=== PATIENT | female | born 1990 | race Caucasian/White ===

== ENCOUNTER 2017-01-05 13:59 | Emergency (ER) | payer MEDICAID ==
[2017-01-05 14:12] VITALS: BP 114/66
[2017-01-05] MEDS ORDERED: LIDOCAINE HCL 20 ML UDC MM ONE (14:21)
--- NOTE | 2017-01-05 14:26 | ERNOTE ---
ENT HPI Date of Service: 01/05/17 Presenting Symptoms: dental pain Time Seen by Provider: 01/05/17 14:14 Source: patient Exam Limitations: no limitations - Immun/Allergies/Home Medications Immunizations: IMMUNIZATION HX Immunizations Up to Date Yes Allergies/Adverse Reactions: Allergies Allergy/AdvReac Type Severity Reaction Status Date / Time codeine Allergy Vomiting Verified 01/05/17 14:13 Home Medications: HOME MEDICATIONS Clindamycin HCl [Cleocin HCl] 300 mg PO Q6H #40 capsule 01/05/17 [Last Taken Unknown] Pnv Cmb#21/Iron/Folic Acid [ Complete Caplet] 1 each PO DAILY 01/05/17 [ Last Taken Unknown] diphenhydrAMINE HCL [Benadryl] 25 mg PO Q6H PRN 01/05/17 [Last Taken Unknown] - History of Present Illness Narrative: Pt. comes in with c/o L mandible pain afor three days. Pt. denies any fever, NVD, headache, dizziness, SOB, or CP. Pt. does state that she is having difficulty eating or sleeping due to the pain. Pt. has an appointment with a dentist in a week and has been taking Tylenol as suggested by her TICKER MAINTAINER as she is 24 weeks . Review of Systems - Review of Systems Constitutional: Present: no symptoms reported. Absent: recent illness, fever, chills, fatigue, malaise EYE: Present: no symptoms reported ENT: Present: other - L mandible pain Respiratory: Present: no symptoms reported. Absent: shortness of breath, cough , wheezing Cardiology: Present: no symptoms reported. Absent: chest pain, palpitations, edema Gastrointestinal/Abdominal: Present: no symptoms reported. Absent: nausea, vomiting, diarrhea Genitourinary: Present: no symptoms reported Musculoskeletal: Present: no symptoms reported. Absent: back pain, joint pain Skin: Present: no symptoms reported Neurological: Present: no symptoms reported. Absent: headache, dizziness/light- headedness, numbness, tingling All Other Systems: All systems neg except as marked - Patient's Past Medical History Patient History - Medical: No pertinent hx Patient History - Cardiac/Respiratory: No pertinent hx Patient History - Cancer: No Hx of Cancer Patient History - Surgical Procedures: D & C, Other - Immunizations Immunizations Up to Date: Yes Physical Exam - Physical Exam General Appearance: Present: wd/wn, alert, no apparent distress Eye Exam: Normal inspection: bilateral, PERRL: bilateral, EOMI: bilateral Ears, Nose, Throat: Present: normal pharynx, other - Mandible tenderness and small fluid pocket below two broken teeth below gumline Neck: Present: normal inspection, nontender. Absent: lymphadenopathy (R), lymphadenopathy (L) Respiratory: Present: no respiratory distress, normal breath sounds, no accessory muscle use, chest nontender, lungs clear Cardiovascular/Chest: Present: regular rate, rhythm, no murmur, normal peripheral pulses Gastrointestinal/Abdominal: Present: normal bowel sounds, nontender, nondistended, soft, no organomegaly Back Exam: Present: normal inspection, normal range of motion, no CVA tenderness , no vertebral tenderness Extremity Exam: Present: normal inspection, non-tender, normal range of motion, no edema Neurological Exam: Present: alert, oriented, normal mood/affect, no motor/ sensory deficits Skin Exam: Present: normal color, warm/dry. Absent: pallor, skin rash ED Progress - Vital Signs Patient's Vital Signs:: I have reviewed the patient's vital signs. Vital Signs: Vital Signs 01/05/17 14:03 Temperature 37 C Pulse Rate 100 Respiratory 12 Rate Blood Pressure 114/66 O2 Sat by Pulse 100 Oximetry - Progress/Reassessment Chief Complaint: Dental Problem Progress:: Improved Progress Note-Subjective: 01/05/17 14:45 with lidocaine will send rest home with pt to apply q4hr prn Departure Clinical Impression: Dental abscess - Departure Disposition: Home self-care Condition: Good Instructions: Dental Abscess, [id number] Additional Instructions: May take tylenol up to 1000mg every six hours as needed. Please follow up with dentist next week as planned Prescriptions: Clindamycin HCl [Cleocin HCl] 300 mg PO Q6H #40 capsule
--- OUTSIDE RECORDS SUMMARY | 2017-01-05 14:37 | XMS REPORT | Continuity of Care Document ---
:1990 Author Organization [facility] [place] [address] Care Team Providers Name Role Phone Unavailable Primary Care Provider Unavailable Source Comments This disclosure is being made pursuant to the [employer] program and maynot contain all information available regarding this patient.[facility] Active Allergies and Adverse Reactions Not on File Current Medications Be aware that medications may not be up to date as of this document. Alwaysverify current medications with the patient. Not on file Active Problems Not on file Social History Tobacco Use Types Packs/Day Years Used Date Never Assessed Plan of Care Health Maintenance Due Date Last Done Comments HPV Vaccine (9-26YO) (1 of 3 - Female/Unknown 3 Dose 02/25/2003 Series) Chlamydia Screening 2008 Retired-Tetanus Vaccine Adult 02/25/2011 Pap Smear 02/25/2013 Retired-INFLUENZA VACCINE 05/06/2015 Results from Last 3 Months Not on file
--- OUTSIDE RECORDS SUMMARY | 2017-01-05 14:38 | XMS REPORT | Continuity of Care Document ---
:1990 Author Organization [facility] ([facility]) Address [place] [address] Phone [phone] Care Team Providers Name Role Phone Unavailable Primary Care Provider Unavailable Source Comments This disclosure is being made pursuant to the Care Everywhere program, applicable federal and state laws, and may not contain all informaitonavailable regarding this patient.[facility] ([facility]) Active Allergies and Adverse Reactions Not on File Current Medications Not on file Active Problems Not on file Social History Tobacco Use Types Packs/Day Years Used Date Never Assessed Plan of Care Health Maintenance Due Date Last Done Comments Hepatitis B Vaccine (1 of 3 - Primary Series) 1992 HPV Vaccine (1 of 3 - Female/Unknown 3 Dose Series) 02/25/2003 Tdap Vaccine 02/25/2003 Cervical Cancer Screening 02/25/2010 Lipid Disorder Screening 02/25/2010 MMR Vaccine 02/25/2010 Td Vaccine 02/25/2010 Varicella Vaccine (1 of 2 - Adult - No Evidence of 02/25/2010 Immunity) Influenza Vaccine: Seasonal (#1) 04/05/2016 Results from Last 3 Months Not on file
== END 2017-01-05 14:37 | disposition home or self-care (01) ==
LOC: ER 13:59
DX: K04.7 Periapical abscess without sinus (principal); Z72.0 Tobacco use; Z3A.24 24 weeks gestation of pregnancy

== ENCOUNTER 2017-01-31 20:09 | Observation (INO) | payer MEDICAID ==
--- OUTSIDE RECORDS SUMMARY | 2017-01-31 20:14 | XMS REPORT | Continuity of Care Document ---
:1990 Author Organization [facility] [place] [address] Care Team Providers Name Role Phone Unavailable Primary Care Provider Unavailable Source Comments This disclosure is being made pursuant to the [employer] program and maynot contain all information available regarding this patient.[facility] Active Allergies and Adverse Reactions Not on [...]
--- OUTSIDE RECORDS SUMMARY | 2017-01-31 20:14 | XMS REPORT | Continuity of Care Document ---
:1990 Author Organization [facility] ([facility]) Address [place] [address] Phone [phone] Care Team Providers Name Role Phone Unavailable Primary Care Provider Unavailable Source Comments This disclosure is being made pursuant to the Care Everywhere program, applicable federal and state laws, and may not contain all informaitonavailable regarding this patient.[facility] ([facility]) Active Allergies and Adverse Reactions Not on [...]
[2017-01-31] MEDS ORDERED: DEXTROSE 5%-LACTATED RINGERS 1,000 ML IV PRN ×2 (20:34→23:27)
[2017-01-31] MEDS ORDERED: RHO(D) IMMUNE GLOBULIN 300 MCG DISP.SYRIN IM ONE (20:40)
--- NOTE | 2017-01-31 20:54 | PN ---
Subjective - Date and Time Seen Date: 01/31/17 Time: 20:45 Subjective Narrative: 26 yo at 31 1/7 wks presents to L&D s/p fall on abdomen around 1930 this evening. Patient states she tripped and fell directly on abdomen, right knee and elbow. She complains of decreased movement and mild abdominal pain where she hit. She denies vaginal bleeding, LOF, or contractions. Objective Objective Narrative: FHT 150, no decels, NST reactive. Uterine irritability - Review of Systems Generalized/Overall Review: Reports: No Symptoms Reported EENTM: Reports: No Symptoms Reported Respiratory: Reports: No Symptoms Reported Cardiac: Reports: No Symptoms Reported Abdominal: Reports: Abdominal Pain - mild Genitourinary Symptoms: Reports: No Symptoms Reported Musculoskeletal Complaints: Reports: No Symptoms Reported Neurological: Reports: No Symptoms Reported Skin: Reports: No Symptoms Reported Endocrine: Reports: No Symptoms Reported - Vitals Vitals: Last Vital Signs Temp 37.4 C 01/31/17 20:40 Pulse 99 Resp 12 BP 132/75 Pulse Ox 97 - Exam Constitutional: Present: Alert, Oriented x3, Cooperative, No distress ENT Exam: Present: hearing grossly normal Neck: Present: non-tender, full range of motion Respiratory: Present: no respiratory distress, no accessory muscle use Cardiovascular/Chest: Present: normal peripheral pulses, regular rate, rhythm, no edema Abdomen: Present: soft, no rebound tenderness, tender - upper abdomen mildly tender Extremity: Present: normal range of motion, no pedal edema, no calf tenderness Skin Exam: Present: normal color, warm/dry, no cyanosis Neurologic: Present: normal mood/affect, oriented x 3 Appearance: Present: appropriate appearance Eye contact: Present: cooperative, good eye contact, normal speech Thoughts: Present: normal thought pattern Assessment/Plan - Problems/Diagnosis (1) Fall Problem: Acute (2) Fall due to stumbling Problem: Acute (3) Traumatic injury during in third trimester Problem: Acute Narrative: Because patient is Rh- we'll get a blood screen and give 1 amp of RhoGAM. Observe for minimal 4 hours, if no signs of abruption D/C home on light duty and abruption precautions.
[2017-02-01] MEDS ORDERED: ACETAMINOPHEN 325 MG TABLET PO PRN
[2017-02-01] MEDS ORDERED: ACETAMINOPHEN 325 MG TABLET ONE (00:05)
--- OUTSIDE RECORDS SUMMARY | 2017-02-01 00:34 | XMS REPORT | Continuity of Care Document ---
:1990 Author Organization [facility] ([facility]) Address [place] [address] Phone [phone] Care Team Providers Name Role Phone Unavailable Primary Care Provider Unavailable Source Comments This disclosure is being made pursuant to the Care Everywhere program, applicable federal and state laws, and may not contain all informaitonavailable regarding this patient.[facility] ([facility]) Active Allergies and Adverse Reactions Not on [...]
--- OUTSIDE RECORDS SUMMARY | 2017-02-01 00:34 | XMS REPORT | Continuity of Care Document ---
:1990 Author Organization [facility] [place] [address] Care Team Providers Name Role Phone Unavailable Primary Care Provider Unavailable Source Comments This disclosure is being made pursuant to the [employer] program and maynot contain all information available regarding this patient.[facility] Active Allergies and Adverse Reactions Not on [...]
[2017-02-01] MEDS ORDERED: RHO(D) IMMUNE GLOBULIN 300 MCG DISP.SYRIN IM ONE (01:00)
--- NOTE | 2017-02-02 11:24 | DS ---
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 26-year-old 3 para 0 at 31-1/7 weeks admitted for 23 hour observation status post fall on abdomen due to frequent contractions during initial 4 hours of monitoring. Throughout her hospital stay vitals remained stable, her cervix remained unchanged, contractions resolved, and her abdominal pain resolved. Nonstress test was reactive and tracing remained reassuring throughout the entire hospital stay. Procedures Performed: see notes below - continuous monitoring, nonstress test, tocodynamometer Discharge Disposition: Home self care Disposition: Home self-care Condition: Good Discharge Activity: Activity as tolerated Discharge Diet: General/regular food Additional Patient Instructions (free text): Avoid heavy lifting or strenuous activity for 1 week. Follow-up in the office as scheduled within the week. Complete Home Medications List: Complete Home Medication List: Clindamycin HCl [Cleocin HCl] 300 mg PO Q6H #40 capsule 01/05/17 Pnv Cmb#21/Iron/Folic Acid [ Complete Caplet] 1 each PO DAILY 01/05/17 diphenhydrAMINE HCL [Benadryl] 25 mg PO Q6H PRN 01/05/17
== END 2017-02-01 09:25 | disposition home or self-care (01) ==
LOC: OBCLINIC 20:09 → OB 02-01 00:30
PROVIDERS: ADMIT Obstetrics & Gynecology; ATTEND Obstetrics & Gynecology
DX: O71.89 Other specified obstetric trauma (principal); O60.03 Preterm labor without delivery, third trimester; Z3A.31 31 weeks gestation of pregnancy; B18.2 Chronic viral hepatitis C; Z87.891 Personal history of nicotine dependence; O36.0930 Maternal care for other rhesus isoimmunization, third trimester, not applicable or unspecified
CPT/HCPCS: 59025; 85460; 87081; 96372; G0378; J2790

== ENCOUNTER 2017-03-31 00:05 | Inpatient (IN) | payer MEDICAID ==
[~2017-03-31 00:05] MED LIST: LIDOCAINE HCL 50 ML VIAL PERI PRN; ONDANSETRON HCL/PF 2 MG/ML VIAL IV PRN; OXYTOCIN/DEXTROSE 5%-WATER 30 UNITS/500 ML BAG IV ONE
--- OUTSIDE RECORDS SUMMARY | 2017-03-31 00:09 | XMS REPORT | Clinical Summary ---
:1990 Author Organization [facility] [place] [address] Care Team Providers Name Role Phone Unavailable Primary Care Provider Unavailable Source Comments This disclosure is being made pursuant to the [employer] program and maynot contain all information available regarding this patient.[facility] Allergies Not on File Current Medications Be aware that medications may not be up to date as of this document. Alwaysverify current medications with the patient. Not on file Active Problems Not on file Social History Tobacco Use Types Packs/Day Years Used Date Never Assessed Sex Assigned at Date Recorded Not on file Last Filed Vital Signs Not on file Plan of Treatment Health Maintenance Due Date Last Done Comments HPV Vaccine (F:9-26YO,M: 9-22) (1 of 3 - Female/Unknown 02/25/2003 3 Dose Series) CHLAMYDIA SCREENING 2008 Retired-Tetanus Vaccine Adult 02/25/2011 Pap Smear 02/25/2013 Retired-INFLUENZA VACCINE 05/06/2015 Results Not on filefrom Last 3 Months
[2017-03-31] MEDS: DEXTROSE 5%-LACTATED RINGERS 1,000 ML IV PRN ×4 (00:30→17:15)
[2017-03-31 01:10] LABS: Cocaine Ur Negative (NEGATIVE); Urine Barbiturate Negative (NEGATIVE); Urine Benzodiazepines Negative (NEGATIVE); Urine Opiates Negative (NEGATIVE); Urine PCP Negative (NEGATIVE); Urine THC Negative (NEGATIVE)
[2017-03-31] MEDS: MISOPROSTOL 100 MCG TABLET VG PRN ×2 (01:16→03:52)
[2017-03-31] MEDS ORDERED: TERBUTALINE SULFATE 1 MG/ML VIAL SC ONE (06:19)
[2017-03-31] MEDS: RINGER'S SOLUTION,LACTATED 1,000 ML IV ONE ×2 (10:09→16:10)
[2017-03-31] MEDS ORDERED: BUTORPHANOL TARTRATE 2 MG/ML VIAL IV PRN (12:31)
[2017-03-31] MEDS ORDERED: ONDANSETRON HCL/PF 2 MG/ML VIAL IV PRN (16:17)
[2017-03-31] MEDS ORDERED: NALOXONE HCL 1 MG/1 ML SYRG IV PRN (16:17)
[2017-03-31] MEDS ORDERED: fentaNYL CITRATE/PF 50 MCG/ML AMPUL IT SCH (16:30)
--- NOTE | 2017-03-31 16:46 | OR ---
Anesthesia Procedure Note - Anesthesia Procedure Note Narrative: Vital Signs - Last Taken Temp 36.5 C 03/31/17 16:18 Pulse 67 03/31/17 16:18 Resp 16 03/31/17 16:18 BP 112/71 03/31/17 16:18 Pulse Ox 98 03/31/17 16:18 03/31/17 16:46 ANESTHESIA PROCEDURE NOTE Date of Procedure: 03/31/2017 Time of procedure: 1620. Performed by: Vivek Dye CRNA Instructor Bridge: None. Preprocedure diagnosis: Active labor. Post procedure diagnosis: Same. Procedure: Insertion of labor epidural. Indications: The patient is a 27 -year-old prima para female in active labor requesting labor epidural for pain management. Findings: See below. Details of the procedure: The patient was placed in a sitting position. Back was prepped with DuraPrep. Patient was then draped in a sterile fashion. Lidocaine 1% was infiltrated to the skin and subcutaneous tissues at the level of the L3 4 interspace. The epidural space was identified using a 18-gauge Tuohy needle with [id number] technique. 20 mcg fentanyl was given intrathecally using a 27 ga. spinal needle. Epidural catheter was inserted without difficulty. Negative test dose was elicited using 5 mL of 1.5% preservative-free lidocaine plus epinephrine 1 200,000. The epidural catheter was then taped and secured in place. EBL: Minimal. Fluids: N/A. Specimen: N/A. Post procedure condition: The patient tolerated the procedure well. No complications were noted. Thank you for this consultation. Phillips CRNA
[2017-03-31] MEDS: BUPIVACAINE HCL/0.9 % NACL/PF 250 ML EP PRN (16:53)
--- NOTE | 2017-03-31 17:58 | PN ---
Progess Note - Interim Narrative: 03/31/17 17:54 Patient comfortable with epidural Vital signs stable. Status post 2 half doses of Cytotec (12.5 mg) with last dose at 0345 FHT: 140 baseline, reassuring Contractions q 2-3 min Cervix: /-2 Impression: Intrauterine at 39-4/7 weeks elective/social induction of labor. Chronic hepatitis C carrier. Recovered substance abuser Plan: Avoid FSE or ruptured membranes unless necessary. Will augment with Pitocin as needed area
--- NOTE | 2017-04-01 00:40 | PN ---
Progess Note - Interim Narrative: 04/01/17 00:36 Patient c/o of upper back pain and worsening of her contractions which resolved after re-bolus of her epidural AFVSS. Pitocin at 3 mu/min SROM at 2230 - clear Contractions q 1-2 min Cervix - 5/90/-2 Impression: 39 5/7 wk IUP, Chronic hepatitis C Plan: IUPC to assess MVU, avoid FSE. Continue induction of labor.
[2017-04-01] MEDS: DEXTROSE 5%-LACTATED RINGERS 1,000 ML IV PRN ×2 (01:22→08:30)
[2017-04-01] MEDS: BUPIVACAINE HCL/0.9 % NACL/PF 250 ML EP PRN (05:00)
[2017-04-01] MEDS ORDERED: ceFAZolin SODIUM/DEXTROSE,ISO 2 GM/50 ML BAG IV ONE (08:03)
[2017-04-01] MEDS ORDERED: OXYTOCIN 20 UNITS in RINGER'S SOLUTION,LACTATED 1,000 ML IV ONE (08:03)
--- NOTE | 2017-04-01 08:09 | PN ---
Progess Note - Interim Narrative: 04/01/17 08:05 Patient more comfortable after re-dosing epidural Vital signs stable. Pitocin at 3 mu/min. FHT:150 baseline, reassuring Contractions q 2-3 min Patient complete since 0440 this a.m., pushing for 3 hours with no descent of vertex past -1, caput Impression: Intrauterine at 39-5/7 weeks, induction of labor for elective/social reasons, arrest of descent, chronic hepatitis C Plan: Risk/benefits/alternatives to section discussed with patient and family. All questions answered. Will proceed with a primary low transverse section due to arrest of descent.
[2017-04-01] MEDS ORDERED: RINGER'S SOLUTION,LACTATED 1,000 ML IV ONE (08:45)
[2017-04-01 09:29] LABS: Venous Blood Gas HCO3 22.2 mmol/L (22.0-29.0); Venous Blood Gas pH 7.21 (7.32-7.43)
--- NOTE | 2017-04-01 10:01 | OR ---
Operative Report - Dictated Report Narrative: Pre Operative Diagnosis: 39-5/7 week intrauterine , arrest of descent, chronic hepatitis C carrier Post Operative Diagnosis: Same. Procedure Preformed: Primary Low Transverse Section Surgeon: Jennifer Ashton DO Tile Layer Helper: OR Staff Anesthesia: Spinal converted to general Estimated Blood Loss: 200 mL Urine Output: 75 mL Fluids Given: 1100 mL Drains: Snider to gravity Surgical Complications: None Specimens: Placenta to pathology Cord Gases: VB.2/44.4/31.4/17/-10.8 AB.21/57/14.8/22.2/-6.4 Findings: Female in cephalic presentation born at 8:56 AM on 04/01/2015 with Apgars 169 and 9. Nuchal cord 1. Moderate meconium. Normal uterus, tubes, ovaries. Indication: 27-year-old 1 para 0 admitted for elective/social induction at 39-4/7 weeks gestation. She progressed to complete dilation / -1 station but was unable to bring the fetus down any further after 1 hour of laboring down and 3 hours of pushing. Technique: The patient was taken to the operating room and placed in dorsal supine position with a left lateral tilt. Her epidural was not functioning well as therefore she underwent a spinal anesthesia which migrated high and she had difficulty breathing and required general anesthesia. Snider catheter was inserted, SCDs placed, and 2 g of Ancef given preoperatively. The abdominal cavity was entered via a modified Dm-Adkins incision. A transverse incision was made in the lower uterine segment and extended laterally and upwardly with digital traction. Nuchal cord and moderate meconium were noted upon amniotomy. The was delivered easily. The cord was clamped and cut and was handed off to awaiting stitch bonder machine operator helper. A segment of cord was clamped and cut and held for cord gases. The placenta was allowed to deliver spontaneously. The uterus was cleared of clot and debris. Uterine incision was closed with 0 Vicryl using a running stitch. A second imbricating layer was placed. Excellent hemostasis was noted. The peritoneum was closed with a running 3-0 Monocryl. The same suture was used to approximate the rectus and pyramidalis muscles. The fascia was closed with a running 0 Vicryl. The subcutaneous layer was closed with a running 3-0 Monocryl. The same suture was used to approximate the subdermal layer. The skin was closed with a running 4-0 Monocryl and Dermabond. Sponge, lap, needle, and instrument count were correct x 2. Disposition: The patient was transferred to post anesthesia care unit in good condition History for MU Definition: * The number of deliveries resulting in a live the patient experienced prior to current hospitalization * The previous delivery of live twins or any live multiple gestation is considered one live event. *If primagravida or nulliparous is documented select zero for the number of previous live births. Live Events: 0
[2017-04-01] MEDS ORDERED: BENZOCAINE/MENTHOL 81 SPRAY CAN TP PRN (10:09)
[2017-04-01] MEDS ORDERED: oxyCODONE HCL/ACETAMINOPHEN 1 TAB TABLET PO PRN (10:09)
[2017-04-01] MEDS ORDERED: BISACODYL 10 MG SUPP.RECT RC PRN (10:09)
[2017-04-01] MEDS ORDERED: ONDANSETRON HCL/PF 2 MG/ML VIAL IV PRN (10:09)
[2017-04-01] MEDS ORDERED: SENNOSIDES 8.6 MG TABLET PO PRN (10:09)
[2017-04-01] MEDS ORDERED: GLYCERIN/WITCH HAZEL LEAF 40 APPL BOX TP PRN (10:09)
[2017-04-01] MEDS ORDERED: KETOROLAC TROMETHAMINE 30 MG/ML VIAL IV PRN (10:52)
[2017-04-01] MEDS: oxyCODONE HCL/ACETAMINOPHEN 1 TAB TABLET PO PRN ×3 (12:31→23:59)
[2017-04-01] MEDS: IBUPROFEN 800 MG TABLET PO PRN (17:29)
[2017-04-01] MEDS: ENOXAPARIN SODIUM 40 MG/0.4 ML SYRG SC SCH (20:54)
[2017-04-01] MEDS: DOCUSATE SODIUM 100 MG CAPSULE PO SCH (20:54)
[2017-04-02] MEDS: oxyCODONE HCL/ACETAMINOPHEN 1 TAB TABLET PO PRN ×4 (03:43→22:44)
[2017-04-02] MEDS: DOCUSATE SODIUM 100 MG CAPSULE PO SCH ×3 (07:02→22:41)
[2017-04-02] MEDS: IBUPROFEN 800 MG TABLET PO PRN ×4 (07:02→22:44)
[2017-04-02] MEDS: SIMETHICONE 80 MG TAB.CHEW PO PRN ×2 (07:02)
--- NOTE | 2017-04-02 08:00 | PN ---
Subjective - Date and Time Seen Date: 04/02/17 Time: 07:57 Objective - Vitals Vitals: Last Vital Signs Temp 37.0 C 04/02/17 07:17 Pulse 77 04/02/17 07:17 Resp 18 04/02/17 07:17 BP 108/54 04/02/17 07:17 Pulse Ox 95 04/02/17 07:17 Patient denies complaints. Tolerating regular diet. Ambulating without difficulty. Pain well controlled. Lochia wnl. Abdomen - soft, appropriately tender, distended with hypoactive bowel sounds on the left Incision - clean, dry, intact Uterus - firm, at umbilicus -1 No calf tenderness Impression: Post op day #1 s/p primary section. Chronic hepatitis C carrier-stable. History of multiple substance abuse in remission-stable. Partial ileus. Plan: Continue routine post-operative/ care. Encourage ambulation and bland diet. If nausea and vomiting develop, will make nothing by mouth until ileus resolves. - Abnormal Lab Findings Abnormal Lab Findings: Abnormal Lab Results 04/01/17 04/01/17 Range/Units 09:06 09:06 pCO2 57.0 H (32.0-45.0) mmHg pO2 31.4 L* 14.8 L (83.0-108.0) mmHg HCO3 17.0 L (21.0-28.0) mmol/L Total CO2 18.3 L (19.0-24.0) mmol/L Base Excess -10.8 L -6.4 L (-2.0-3.0) mmol/L ABG pH 7.20 L 7.21 L (7.35-7.45) ABG O2 Sat (Measured) 47.8 L (94.0-98.0) % Cauti Physician Documentation - Urinary Catheter Management Urethral (Snider) Date of Removal: 04/01/17 Time of Removal: 22:30
[2017-04-02] MEDS: ENOXAPARIN SODIUM 40 MG/0.4 ML SYRG SC SCH (22:41)
[2017-04-03] MEDS: IBUPROFEN 800 MG TABLET PO PRN ×3 (06:02→20:08)
[2017-04-03] MEDS: oxyCODONE HCL/ACETAMINOPHEN 1 TAB TABLET PO PRN ×3 (06:03→20:09)
[2017-04-03] MEDS: DOCUSATE SODIUM 100 MG CAPSULE PO SCH ×2 (20:03→20:08)
[2017-04-03] MEDS: ENOXAPARIN SODIUM 40 MG/0.4 ML SYRG SC SCH (20:04)
[2017-04-04] MEDS: IBUPROFEN 800 MG TABLET PO PRN (04:43)
[2017-04-04] MEDS: oxyCODONE HCL/ACETAMINOPHEN 1 TAB TABLET PO PRN (04:43)
[2017-04-04 07:35] VITALS: BP 116/68
[2017-04-04] MEDS: DOCUSATE SODIUM 100 MG CAPSULE PO SCH (08:16)
--- NOTE | 2017-04-04 09:08 | PN ---
Subjective - Date and Time Seen Date: 04/04/17 Time: 09:06 - Seen yesterday at 1430 Objective - Vitals Vitals: Last Vital Signs Temp 36.6 C 04/04/17 06:55 Pulse 70 04/04/17 06:55 Resp 16 04/04/17 06:55 BP 116/68 04/04/17 06:55 Pulse Ox 96 04/04/17 06:55 [Patient denies complaints. Ambulating well. Tolerating regular diet. Pain well controlled.] Lochia wnl. Abdomen - soft, appropriately tender Incision - [clean, dry, intact] Uterus - firm, at umbilicus -[2] No calf tenderness Impression: Post op day #2 s/p primary section. Chronic hepatitis C- stable. Recovered substance abuse user. Partial ileus - resolved Plan: Continue routine post-operative/ care. Cauti Physician Documentation - Urinary Catheter Management Urethral (Snider) Date of Removal: 04/01/17 Time of Removal: 22:30
--- NOTE | 2017-04-04 09:11 | PN ---
Subjective - Date and Time Seen Date: 04/04/17 Time: 09:10 Objective - Vitals Vitals: Last Vital Signs Temp 36.6 C 04/04/17 06:55 Pulse 70 04/04/17 06:55 Resp 16 04/04/17 06:55 BP 116/68 04/04/17 06:55 Pulse Ox 96 04/04/17 06:55 Patient denies complaints. Ambulating without difficulty. Tolerating regular diet. Pain well controlled. Lochia wnl. Abdomen - soft, appropriately tender Incision - clean, dry, intact Uterus - firm, at umbilicus -3 No calf tenderness Impression: Post op day #3 s/p primary section. Chronic hepatitis C- stable. Recovered substance abuse user. Plan: Routine discharge instructions Cauti Physician Documentation - Urinary Catheter Management Urethral (Snider) Date of Removal: 04/01/17 Time of Removal: 22:30
== END 2017-04-04 11:31 | disposition home or self-care (01) | DRG 766 ==
LOC: OB 00:05 → MS 04-03 07:32
PROVIDERS: ADMIT Obstetrics & Gynecology; ATTEND Obstetrics & Gynecology
PROC: 4A1HXCZ Monitoring of Products of Conception, Cardiac Rate, External Approach (ICD-10-PCS; 2017-04-01)
PROC: 10D00Z1 Extraction of Products of Conception, Low, Open Approach (ICD-10-PCS; principal; 2017-04-01 08:00)
DX: O69.81X0 Labor and delivery complicated by cord around neck, without compression, not applicable or unspecified (principal); O77.0 Labor and delivery complicated by meconium in amniotic fluid; O99.02 Anemia complicating childbirth; D50.8 Other iron deficiency anemias; O32.4XX0 Maternal care for high head at term, not applicable or unspecified; O99.334 Smoking (tobacco) complicating childbirth; Z3A.40 40 weeks gestation of pregnancy; Z37.0 Single live birth
CPT/HCPCS: 36416; 36600; 59025; 59510; 80307; 82803; 88307; J2405

== ENCOUNTER 2020-01-04 05:01 | Inpatient (IN) ==
[~2020-01-04 05:01] MED LIST changes: -LIDOCAINE HCL 50 ML VIAL PERI PRN; -ONDANSETRON HCL/PF 2 MG/ML VIAL IV PRN; +OXYTOCIN 20 UNITS in RINGER'S SOLUTION,LACTATED 1,000 ML IV ONE; -OXYTOCIN/DEXTROSE 5%-WATER 30 UNITS/500 ML BAG IV ONE
[2020-01-04] MEDS: RINGER'S SOLUTION,LACTATED 1,000 ML IV PRN ×2 (05:20→06:12)
[2020-01-04 05:34] LABS: Cocaine Ur Negative (NEGATIVE); Urine Barbiturate Negative (NEGATIVE); Urine Benzodiazepines Negative (NEGATIVE); Urine Opiates Negative (NEGATIVE); Urine PCP Negative (NEGATIVE); Urine THC Negative (NEGATIVE)
[2020-01-04] MEDS ORDERED: ceFAZolin SODIUM 1 GM VIAL ONE ×2 (07:25→07:26)
--- NOTE | 2020-01-04 07:25 | ANES ---
Anesthesia Pre Procedure Eval Vitals/Labs: Last Vital Signs Temp 36.5 C 01/04/20 05:57 Pulse 93 01/04/20 05:57 Resp 18 01/04/20 05:57 BP 118/75 01/04/20 05:57 Pulse Ox 97 01/04/20 05:57 HOME MEDICATIONS prenat.vits,ted,[id number] 1 tab PO DAILY 05/29/19 [Last Taken 01/04/20] pyridoxine (vitamin B6) 25 mg tablet 25 mg PO DAILY 06/26/19 [Last Taken 01/03/20] ferrous sulfate 325 mg (65 mg iron) tablet 325 mg PO DAILY #1 tab 10/31/19 [Last Taken Unknown] ascorbate calcium (vitamin C) 500 mg tablet 500 mg PO DAILY 11/26/19 [Last Taken Unknown] Allergies/Adverse Reactions: Allergies Allergy/AdvReac Type Severity Reaction Status Date / Time codeine AdvReac Unknown Vomiting Verified 01/04/20 05:20 - Planned Procedure Planned Procedure: Repeat Section poss abdominal scar revisi Medication List Reviewed:: Yes Allergies Verified: Yes Medical History (Last Reviewed 01/04/20 @ 07:20 by Konrad Cruz CRNA) Threatened spontaneous (Resolved) Ovarian cyst Onset Date: ~09/2018 complex-right Allergy to dogs Onset Date: Unknown Allergy to mold spores Onset Date: Unknown Body piercing Onset Date: Unknown Dust allergy Onset Date: Unknown Hepatitis C carrier Onset Date: 11/11/16 Lactose intolerance Onset Date: Unknown Potassium deficiency Onset Date: ~2013 Tattoos Onset Date: Unknown Anemia Onset Date: Unknown Chlamydia Onset Date: ~2013 2013 X2-Tx'd Spontaneous Onset Date: ~2008 2008 & 2014 Substance abuse in remission Onset Date: 08/10/16 Hepatitis C Onset Date: ~2015 Testing done in [place], [place]-Stated testing was positive. Additional testing done at [facility] in [place] where she was told she was exposed but never contracted Hep C. Substance abuse Onset Date: ~2012 [id number]. Past hx of THC, Meth, Opiates and IV drug use. Surgical History (Last Reviewed 01/04/20 @ 07:20 by Konrad Cruz CRNA) Previous section (Chronic) History of Onset Date: 04/01/17 Arrest of descent History of placement of ear tubes Onset Date: ~1999 History of tonsillectomy and adenoidectomy Onset Date: ~1997 Removal of Lymph Node Onset Date: ~1999 Suction Curettage Onset Date: ~2008 x2-2009 & 2015 Family History (Last Reviewed 01/04/20 @ 07:20 by Konrad Cruz CRNA) Mother Thyroid disease Hyperlipemia Grandmother Diabetes Cancer Rectal Grandfather Alcoholic cirrhosis of liver Other No pertinent family history - Family Anesthesia History Family History:: no untoward family reactions to anesthesia, no familial bleeding tendencies, no family history of clotting disorders, no family history of premature - Airway/Neck/Teeth Within Normal Limits:: Yes Mallampatti Score: 2 Thyromental (T-M) distance: > 6 cm Mandibulo Hyoid distance: > 3 cm - Respiratory Respiratory Physical: lungs clear Smoking Status: Current every day smoker Discussed smoking cessation including day of surgery: Yes Sleep Apnea currently treated: No Sleep Apnea by current assessment: No Discussed Risks/Treatment of MASON: No - Cardiovascular Tolerate Activity: Good Heart Sounds: S1 & S2, Regular - Gastrointestinal NPO since: mn - Anesthesia Assessment and Plan ASA Class: PS, II Anesthesia Type Plan: Block - Bilateral ultrasound guided TAP blocks, Spinal
[2020-01-04] MEDS ORDERED: BUPIVACAINE HCL/EPINEPHRINE/PF 30 ML VIAL IJ ONE (07:32)
[2020-01-04] MEDS ORDERED: MIDAZOLAM HCL/PF 5 MG/ML VIAL ONE (07:32)
[2020-01-04] MEDS ORDERED: PROPOFOL VIAL IV ONE (07:33)
[2020-01-04] MEDS ORDERED: ONDANSETRON HCL/PF 2 MG/ML VIAL ONE (07:33)
[2020-01-04] MEDS ORDERED: fentaNYL CITRATE/PF 50 MCG/ML AMPUL ONE (07:33)
--- NOTE | 2020-01-04 07:42 | HP ---
Chief Complaint - Chief Complaint Date of Service: 01/04/20 Time of Service: 07:37 Chief Complaint: RLTCS History of Present Illness: 29 yo at 39 1/7 weeks presents for RLTCS. This complicated by Hepatitis C and prior c/s. Rh negative Rubella immune GBS positive Medical History (Last Reviewed 01/04/20 @ 07:40 by Dwayne Ashton DO) Threatened spontaneous (Resolved) Ovarian cyst Onset Date: ~09/2018 complex-right Allergy to dogs Onset Date: Unknown Allergy to mold spores Onset Date: Unknown Body piercing Onset Date: Unknown Dust allergy Onset Date: Unknown Hepatitis C carrier Onset Date: 11/11/16 Lactose intolerance Onset Date: Unknown Potassium deficiency Onset Date: ~2013 Tattoos Onset Date: Unknown Anemia Onset Date: Unknown Chlamydia Onset Date: ~2013 2013 X2-Tx'd Spontaneous Onset Date: ~2008 2008 & 2014 Substance abuse in remission Onset Date: 08/10/16 Hepatitis C Onset Date: ~2015 Testing done in [place], [place] testing was positive. Additional testing done at [facility] in [place] where she was told she was exposed but never contracted Hep C. Substance abuse Onset Date: ~2012 [id number]. Past hx of THC, Meth, Opiates and IV drug use. Surgical History: Surgical History (Last Reviewed 01/04/20 @ 07:40 by Dwayne Ashton DO) Previous section (Chronic) History of Onset Date: 04/01/17 Arrest of descent History of placement of ear tubes Onset Date: ~1999 History of tonsillectomy and adenoidectomy Onset Date: ~1997 Removal of Lymph Node Onset Date: ~1999 Suction Curettage Onset Date: ~2008 x2-2008 & 2014 Family History: Family History (Last Reviewed 01/04/20 @ 07:40 by Dwayne Ashton DO) Mother Thyroid disease Hyperlipemia Grandmother Diabetes Cancer Rectal Grandfather Alcoholic cirrhosis of liver Other No pertinent family history Social History: (Last Reviewed 01/04/20 @ 07:40 by Dwayne Ashton DO) Social History: adopted: No retirement: No Marital status: Single household members: significant other, children number of children: 1 current occupational status: employed 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 current occupational exposures/hazards: No Highest education level completed: GED or equivalent Sexually Active: Yes Service: No Tobacco: Smoking Status: Current every day smoker tobacco type: cigarettes Smoking cigarettes per day: 6 Alcohol: alcohol intake: former alcohol intake frequency: a few times a week Substance Use: substance use type: former substance user Dietary Habits: caffeine: Yes caffeine comment: 2/day Exercise: frequency: other Radha/Evangelical: agree to transfusion: Yes Review Of Systems (GEN) - Review of Systems Generalized/Overall Review: Present: No Symptoms Reported EENTM: Present: No Symptoms Reported Respiratory: Present: No Symptoms Reported Cardiac: Present: No Symptoms Reported Abdominal: Present: Other - contractions Genitourinary: Present: No Symptoms Reported Musculoskeletal: Present: No Symptoms Reported Neurological: Present: No Symptoms Reported Skin: Present: No Symptoms Reported Endocrine: Present: No Symptoms Reported Immunizations: IMMUNIZATION HX Immunizations Up to Date Yes History of Influenza Vaccine Yes Hx Pneumococcal Vaccination No Allergies/Adverse Reactions: Allergies Allergy/AdvReac Type Severity Reaction Status Date / Time codeine AdvReac Unknown Vomiting Verified 01/04/20 05:20 Home Medications: HOME MEDICATIONS prenat.vits,ted,fzk-tbgg-gnchy 1 tab PO DAILY 05/29/19 [Last Taken 01/04/20] pyridoxine (vitamin B6) 25 mg tablet 25 mg PO DAILY 06/26/19 [Last Taken 01/03/20] ferrous sulfate 325 mg (65 mg iron) tablet 325 mg PO DAILY #1 tab 10/31/19 [Last Taken Unknown] ascorbate calcium (vitamin C) 500 mg tablet 500 mg PO DAILY 11/26/19 [Last Taken Unknown] Exam - Exam Vital Signs: Vital Signs - Last Taken Temp 36.5 C 01/04/20 05:57 Pulse 93 01/04/20 05:57 Resp 18 01/04/20 05:57 BP 118/75 01/04/20 05:57 Pulse Ox 97 01/04/20 05:57 Constitutional: Present: Alert, Oriented x3, Cooperative, No distress ENT Exam: Present: hearing grossly normal Neck: Absent: thyromegaly Breasts: Present: Exam deferred Respiratory: Present: lungs clear, no respiratory distress Cardiovascular/Chest: Present: regular rate, rhythm, no edema Abdomen: Present: soft, nontender, no rebound tenderness, other - gravid /Rectal: Present: Exam deferred Extremity: Present: non-tender, no pedal edema, no calf tenderness Skin Exam: Present: normal color, warm/dry, no cyanosis Neurologic: Present: alert, normal mood/affect, oriented x 3 Appearance: Present: appropriate appearance, appropriate insight Eye contact: Present: cooperative, good eye contact, normal speech Thoughts: Present: normal thought pattern, normal mood /affect Diagnostic Studies: Laboratory Results Urine Opiates Screen Negative (NEGATIVE) 01/04/20 05:24 Barbiturate Screen Negative (NEGATIVE) 01/04/20 05:24 Ur Phencyclidine Scrn Negative (NEGATIVE) 01/04/20 05:24 Urine Amphetamine Negative (NEGATIVE) 01/04/20 05:24 U Benzodiazepines Scrn Negative (NEGATIVE) 01/04/20 05:24 Urine Cocaine Screen Negative (NEGATIVE) 01/04/20 05:24 Urine Marijuana (THC) Negative (NEGATIVE) 01/04/20 05:24 Assessment/Plan - Assessment/Plan (1) Previous section Assessment: Admit for repeat LTCS with possible abdominal scar revision. Problem: Chronic
[2020-01-04] MEDS ORDERED: ONDANSETRON HCL/PF 2 MG/ML VIAL IV PRN (09:15)
[2020-01-04] MEDS ORDERED: SENNOSIDES 8.6 MG TABLET PO PRN (09:15)
[2020-01-04] MEDS ORDERED: SIMETHICONE 80 MG TAB.CHEW PO PRN (09:15)
[2020-01-04] MEDS ORDERED: BISACODYL 10 MG SUPP.RECT RC PRN (09:15)
--- NOTE | 2020-01-04 09:19 | OR ---
Operative Report - Dictated Report Narrative: Indication: 29-year-old at 39-1/7-week with prior section presents for repeat low transverse section. status: Planned Pre Operative Diagnosis: 39 1/7-week intrauterine . Prior section. Post Operative Diagnosis: Same. Procedure: Repeat low transverse section. Surgeon: Jennifer Ashton DO Driver'S License Examiner: OR Staff Anesthesia: Spinal, TAP block Estimated Blood Loss: 400 mL Urine Output: 125 mL of dark clear urine Fluids Replacement: 2200 mL of crystalloid Drains: Padilla to gravity Surgical Complications: None Specimens: Placenta to freezer Findings: Male born at 0803 on 01/04/2018 with Apgars 9 and 9, weighing 3562 g in cephalic presentation. Normal uterus, tubes, ovaries. Lower uterine segment at least 1 cm thick. Technique: The patient was taken to the operating room and placed in dorsal supi ne position with a left lateral tilt. After adequate spinal anesthesia, padilla catheter inserted, SCDs placed, and 2 g of Ancef given preoperatively, the abdominal cavity was entered using sharp and blunt dissection. Two rolled laps were placed in the pericolic gutters on either side of the uterus. A transverse incision was made in the lower uterine segment and extended laterally and upwardly with digital traction. Clear fluid was noted upon amniotomy. The was delivered easily. The cord was clamped and cut and infant was handed off to awaiting spray painter helper. The placenta was allowed to deliver spontaneously. The uterus was cleared of clot and debris. Uterine incision was closed with 0 Vicryl using a running stitch. A second imbricating layer was placed. Excellent hemostasis was noted. The rolled laps were removed from the abdominal cavitiy. The peritoneum was closed with a running 3-0 Monocryl. The same suture was used to approximate the rectus and pyramidalis muscles. The fascia was closed with a running 0 Vicryl. The subcutaneous layer was closed with a running 3-0 Monocryl. The same suture was used to approximate the subdermal layer. The skin was closed with a running 4-0 Monocryl and Dermabond. Sponge, lap, needle, and instrument count were correct x 2. Disposition: To post anesthesia care unit in good condition
--- NOTE | 2020-01-04 09:20 | PN ---
Progess Note - Interim Date: 01/04/20 Time: 09:19 History for MU History for MU Definition: * The number of deliveries resulting in a live the patient experienced prior to current hospitalization * The previous delivery of live twins or any live multiple gestation is considered one live event. *If primagravida or nulliparous is documented select zero for the number of previous live births. Live Events: Live Events: 1
--- NOTE | 2020-01-04 09:29 | ANES ---
Post Anesthesia Discharge - Transfer of Care Transfer of Care handoff given to nurse: Yes - Discharge from PACU Discharge from PACU when meets criteria: Yes - Discharge to ASU Discharge to ASU-no complications/pt stable: Yes
--- NOTE | 2020-01-04 09:30 | ANES ---
Anesthesia Procedure Note Procedure Note: ANESTHESIA PROCEDURE NOTE Date of Procedure: 01/04/2020. Time of procedure: 914. Performed by: Konrad Cruz CRNA Car Body Inspector: None. Preprocedure diagnosis: Repeat . Post procedure diagnosis: Same. Procedure: Bilateral ultrasound-guided transversus abdominis plane block for postop analgesia. Indications: The patient is a 29-year-old female post section. Findings: See below. Details of the procedure: ChloraPrep was used on the patient's abdomen and the procedure was performed under sterile technique. The right abdominal fascial layer between the internal oblique muscle and the transversus abdominis muscles was identified under ultrasound guidance. A 21-gauge 4 inch block needle was inserted under ultrasound guidance to the target fascial plane. 15 mL's of 0.5% bupivacaine plus epinephrine 1:200,000 was injected after negative aspiration for blood. The needle was removed intact and the procedure was then repeated at the left side. No complications were noted. The images were retained in the hospital medical database . EBL: Minimal. Fluids: N/A. Specimen: N/A. Post procedure condition: The patient tolerated the procedure well. No complications were noted. Thank you for this consultation. Konrad Cruz CRNA
--- NOTE | 2020-01-04 09:31 | ANES ---
Post Anesthesia Assessment - Vital Signs Vitals: Last Vital Signs Temp 36.9 C 01/04/20 09:10 Pulse 93 01/04/20 09:25 Resp 18 01/04/20 09:25 BP 113/49 01/04/20 09:25 Pulse Ox 98 01/04/20 09:25 Airway Patency: Normal - Mental Status Level Of Consciousness: Awake - Pain Level Pain Score: 0 - N/V Assessment Nausea/Vomiting Presence: None Dehydration:: No
[2020-01-04] MEDS: IBUPROFEN 800 MG TABLET PO PRN ×2 (11:06→19:33)
[2020-01-04] MEDS: oxyCODONE HCL/ACETAMINOPHEN 1 TAB TABLET PO PRN ×4 (11:06→22:33)
[2020-01-04] MEDS: ENOXAPARIN SODIUM 40 MG/0.4 ML SYRG SC SCH (18:17)
[2020-01-04] MEDS: DOCUSATE SODIUM 100 MG CAPSULE PO SCH (21:40)
[2020-01-05] MEDS: oxyCODONE HCL/ACETAMINOPHEN 1 TAB TABLET PO PRN ×4 (02:05→20:21)
[2020-01-05] MEDS: IBUPROFEN 800 MG TABLET PO PRN ×4 (02:05→20:20)
[2020-01-05] MEDS ORDERED: ceFAZolin SODIUM 1 GM VIAL IV PRN (06:00)
[2020-01-05] MEDS: ASCORBIC ACID 500 MG TABLET PO SCH (08:31)
[2020-01-05] MEDS: PRENATAL VITS96/IRON FUM/FOLIC 1 TAB TABLET PO SCH (08:31)
[2020-01-05] MEDS: DOCUSATE SODIUM 100 MG CAPSULE PO SCH ×2 (08:31→20:20)
[2020-01-05] MEDS: FERROUS SULFATE 325 MG TABLET PO SCH (08:32)
--- NOTE | 2020-01-05 11:42 | PN ---
Subjective - Date and Time Seen Date: 01/05/20 Time: 11:42 Objective - Vitals Vitals: Last Vital Signs Temp 36.8 C 01/05/20 06:30 Pulse 77 01/05/20 06:30 Resp 20 01/05/20 06:30 BP 94/55 01/05/20 06:30 Pulse Ox 96 01/05/20 06:30 Patient denies complaints. Tolerating regular diet. Ambulating without difficulty. Pain well controlled. Lochia wnl. Abdomen - soft, appropriately tender Incision -clean, dry, intact uterus - firm, at umbilicus -1 no calf tenderness Impression: Post op day #1 s/p repeat section. Plan: Continue routine post-operative/ care Cauti Physician Documentation - Urinary Catheter Management 2-way Urethral Date of Insertion: 01/04/20 Time of Insertion: 08:00 Assessment/Plan - Problems/Diagnosis (1) Previous section Problem: Chronic
[2020-01-05] MEDS: ENOXAPARIN SODIUM 40 MG/0.4 ML SYRG SC SCH (17:15)
[2020-01-06] MEDS: oxyCODONE HCL/ACETAMINOPHEN 1 TAB TABLET PO PRN (02:12)
[2020-01-06] MEDS: IBUPROFEN 800 MG TABLET PO PRN ×2 (02:12→08:54)
[2020-01-06 07:31] VITALS: BP 104/57
[2020-01-06] MEDS: FERROUS SULFATE 325 MG TABLET PO SCH (08:54)
[2020-01-06] MEDS: PRENATAL VITS96/IRON FUM/FOLIC 1 TAB TABLET PO SCH (08:54)
[2020-01-06] MEDS: DOCUSATE SODIUM 100 MG CAPSULE PO SCH (08:54)
[2020-01-06] MEDS: ASCORBIC ACID 500 MG TABLET PO SCH (08:56)
--- NOTE | 2020-01-06 11:40 | PN ---
Subjective - Date and Time Seen Date: 01/06/20 Time: 11:39 Objective - Review of Systems EENTM: Reports: Throat Pain - Vitals Vitals: Last Vital Signs Temp 36.7 C 01/06/20 07:31 Pulse 75 01/06/20 07:31 Resp 18 01/06/20 07:31 BP 104/57 01/06/20 07:31 Pulse Ox 100 01/06/20 07:31 Patient denies complaints. Ambulating well. Tolerating regular diet. Pain well controlled. Breast-feeding well Lochia wnl. Abdomen - soft, appropriately tender Incision -clean, dry, intact uterus - firm, at umbilicus -2 no calf tenderness Impression: Post op day #2 s/p repeat section. Desires early discharge. Plan: Continue routine post-operative/ care. Routine discharge instructions given. Cauti Physician Documentation - Urinary Catheter Management 2-way Urethral Date of Insertion: 01/04/20 Time of Insertion: 08:00 Assessment/Plan - Problems/Diagnosis (1) Previous section Problem: Chronic
== END 2020-01-06 13:00 | disposition home or self-care (01) | DRG 788 ==
LOC: OB 05:01
PROVIDERS: ADMIT Obstetrics & Gynecology; ATTEND Obstetrics & Gynecology
CPT/HCPCS: 59025; 80307; J2405